=== PATIENT | female | born 1940 | race Caucasian/White ===

== ENCOUNTER 2017-03-31 15:47 | Observation (INO) ==
[2017-03-31] MEDS ORDERED: *HR* Dextrose 50 % in Water (Syg) 50 ML SYRINGE ONE ×3 (15:52→20:17)
--- NOTE | 2017-03-31 15:58 | Emergency Department Note ---
Disposition Clinical Impression: Hypoglycemia UTI (urinary tract infection) Qualifiers: Urinary tract infection type: acute cystitis Hematuria presence: without hematuria Qualified Code(s): N30.00 - Acute cystitis without hematuria Disposition: Admitted As Inpatient Condition: Fair Altered Mental Status HPI - General Chief Complaint: ED General Medical Stated Complaint: SLOW TO RESPOND Time Seen by Provider: 03/31/17 15:57 Source: EMS Mode of arrival: EMS Limitations: altered mental status Nursing Notes Reviewed: Yes Vital Signs Reviewed: Yes - History of Present Illness HPI Narrative: carolyn presents to the ED via EMS with report of decreased level of consciousness and hypoglycemia. Per EMS they were called after the patient collapsed while her was assisting her out of the car after returning home from an appointment for routine blood work. reported that the patient did not fall to the ground or strike her head but was eased to the ground by him. On EMS arrival fingerstick glucose was 38. Patient was not alert enough to take oral glucose and they were a basic crew and therefore could not provide IV or IM glucose. On arrival to the ED patient is very obtunded with minimal response to sternal rub although vital signs are hemodynamically stable. Repeat fingerstick is 15. Patient is a known insulin dependent diabetic. reported to EMS that she had recently been hospitalized at [facility]. - Related Data Home Medications Medication Instructions Recorded Confirmed Aspirin [Lo-Dose Aspirin EC] 81 mg PO DAILY 03/09/17 03/31/17 Cholecalciferol (Vitamin D3) 2,000 unit PO DAILY 03/09/17 03/31/17 [Vitamin D3] Insulin NPH/REG 70/30 [HumuLIN 65 unit SQ BIDWM 03/09/17 03/31/17 70/30 VIAL] Levothyroxine [Synthroid] 175 mcg PO 0630 03/09/17 03/31/17 Lisinopril [Zestril] 40 mg PO DAILY 03/09/17 03/31/17 Metoprolol [Lopressor] 100 mg PO BID 03/09/17 03/31/17 Oxybutynin Chloride [Ditropan Xl] 5 mg PO BID 03/09/17 03/31/17 Pioglitazone [Actos] 45 mg PO 0800 03/09/17 03/31/17 Pravastatin Sodium [Pravachol] 40 mg PO DAILY 03/09/17 03/31/17 metFORMIN [Glucophage] 500 mg PO BIDWM 03/09/17 03/31/17 Allergies Allergy/AdvReac Type Severity Reaction Status Date / Time No Known Allergies Allergy Verified 03/09/17 08:23 Limitations: ROS unobtainable due to patients medical condition Past Medical History - Past Medical History Medical history: Reports: non-contributory - Social History Smoking Status: Never smoker Smokeless Tobacco Status: No Alcohol use: Reports: none Drug use: Reports: none Physical Exam - General Limitations: altered mental status General appearance: obtunded - Head Head exam: atraumatic, normocephalic, normal inspection - Eye Eye exam: Present: normal appearance, PERRL, EOMI - ENT ENT exam: normal exam, normal oropharynx, mucous membranes moist - Neck Neck exam: Present: normal inspection, full ROM, trachea midline. Absent: lymphadenopathy - Chest Chest inspection: Present: normal inspection, symmetric chest wall rise - Respiratory Respiratory exam: Present: normal lung sounds bilaterally. Absent: respiratory distress - Cardiovascular Cardiovascular exam: Present: regular rate, normal rhythm, normal heart sounds - Abdominal Exam Abdominal exam: Present: soft, Non-Tender. Absent: tenderness, distention, guarding, rebound, rigidity - Extremities Exam Extremities exam: Present: normal inspection, full ROM, normal capillary refill. Absent: tenderness, pedal edema - Back Exam Back exam: Present: normal inspection, full ROM. Absent: tenderness - Expanded Neurological Exam Coma Scale Eye Opening: To Pain Coma Scale Motor Response: Withdraws to Pain Coma Scale Verbal Response: Incomprehensible Coma Scale Total: 8 - Skin Skin exam: Present: warm, dry, intact, normal color Course Course Narrative: Patient presents to the ED with decreased level of consciousness and fingerstick glucose of 15. IV access was immediately established and she received in a 50-50. Glucose improved to 44 and patient began responding to verbal stimuli. Patient states she remembers going to have repeat blood work done today after having blood work done yesterday and receiving a call that one of the labs could not be processed. She states she did take her medications today. She denies any recent illness. She reports some nausea but denies any vomiting or diarrhea. No fever or chills. Review of records shows the patient was seen here on March 09 was diagnosed with a UTI and her elevated troponin. She was transferred to [place]. She eventually had Escherichia coli growing in her blood and urine. states she was at [place] for 6 days and received IV antibiotics. She then went to [facility] for 1 week for a brief rehabilitation. She has been back at home for the past week. He states she had been doing well all week until she collapsed today. He states that he gave her her her usual 60 units of her 70/30 insulin at noon. She also took her metformin this morning. She only ate half a hand sandwich and a small glass of orange juice today around 10 AM. Patient's glucose declined again to 27 and she was given a second amp of D50. She will be given food as well. Mental status remains normal. We will check routine labs. Patient expressed concern that her may have mixed up his insulin with hers but he insists that he stores their insulin in separate places and there was not a mixup. - Reevaluation(s) Reevaluation #1: Urinalysis still shows evidence of UTI. She has a leukocytosis but is afebrile. Electrolytes are normal. Chest x-ray is normal. Patient ate a dinner tray but glucose began dropping again and she was given a third amp of D50. She was started on D5W to maintain her sugar levels. She was started on antibiotics for what appears to be a recurrent UTI. Spoke with patient and regarding admission for close monitoring given her recurrent hypoglycemia and recurrent UTI. There is no evidence of sepsis at this time. She did have a mildly elevated troponin but denies any chest pain or other cardiac complaints. EKG shows no ischemic changes. I spoke to the hospitalist television engineering teacher, Dr. Sanford, who agreed to accept the patient. We will continue to monitor sugars closely. Vital Signs Temperature 96.5 F L 03/31/17 16:01 Pulse Rate 68 03/31/17 16:01 Respiratory Rate 16 03/31/17 16:01 Blood Pressure 178/75 03/31/17 16:01 O2 Sat by Pulse Oximetry 100 03/31/17 16:01 Temperature 98.0 F 04/01/17 00:00 Pulse Rate 62 04/01/17 00:00 Respiratory Rate 16 04/01/17 00:00 Blood Pressure 93/52 04/01/17 00:00 O2 Sat by Pulse Oximetry 96 04/01/17 00:00 Oxygen Delivery Oxygen Delivery Room Air Altered Mental Status - Differential Diagnosis Likely: altered mental status, hypoglycemia, hyponatremia, sepsis - Medical Records Medical records reviewed: Yes I reviewed the patient's medical records. - Lab Data Lab results reviewed: Yes I reviewed the patient's lab results. Result diagrams: 03/31/17 16:30 03/31/17 22:42 Lab Results 03/31/17 03/31/17 03/31/17 Range/Units 16:30 16:30 16:30 WBC 13.0 H D (4.3-11.1) K/mcL RBC 4.52 (3.82-4.97) M/mcL Hgb 13.4 (11.5-15.4) g/dL Hct 41.7 (35.3-44.9) % MCV 92.3 (83.0-100.0) fL MCH 29.6 (28.0-33.3) pg MCHC 32.1 (31.6-35.5) g/dL RDW 13.3 (11.5-14.5) % Plt Count 161 (140-400) K/mcL MPV 11.3 (9.4-12.4) fL Immature Gran % 0.5 (0-4) % Seg Neutrophils % 67.7 % Lymphocytes % 22.1 % Monocytes % 9.0 % Eosinophils % 0.5 % Basophils % 0.2 % Neutrophils # 8.8 (1.6-8.9) K/mcL Lymphocytes # 2.9 (0.6-4.6) K/mcL Monocytes # 1.2 (0.0-1.3) K/mcL Eosinophils # 0.1 (0.0-0.6) K/mcL Basophils # 0.0 (0.0-0.2) K/mcL Sodium 135 L (136-145) mEq/L Potassium 4.4 (3.5-5.1) mEq/L Chloride 105 (98-107) mEq/L Carbon Dioxide 22 L (23-29) mEq/L BUN 24 H (8-23) mg/dL Creatinine 1.02 (0.60-1.20) mg/dL Est GFR ( Amer) > 60 (> 60) Est GFR (Non-Af Amer) 52 L (> 60) BUN/Creatinine Ratio 24 (6-26) Glucose 134 H (70-105) mg/dL Calculated Osmolality 286 (280-300) Lactic Acid 2.2 (0.5-2.2) mmol/L Calcium 9.2 (8.6-10.3) mg/dL Troponin I (< 0.04) ng/mL Urine Color (Yellow) Urine Clarity (Clear) Urine pH (5.0-8.0) pH Units Ur Specific Means (1.010-1.025) Urine Protein (Neg-Trace) mg/dL Urine Glucose (UA) (Normal) mg/dL Urine Ketones (Negative) mg/dL Urine Blood (Negative) Urine Nitrite (Negative) Urine Bilirubin (Negative) Urine Urobilinogen (Normal) mg/dL Ur Leukocyte Esterase (Negative) Urine Microscopic RBC (0-3) per hpf Urine Microscopic WBC (0-3) per hpf Ur Squamous Epith Cells (None-Few) per lpf Amorphous Sediment (Few) Urine Bacteria (None-Few) per hpf Urine Yeast (None Seen) per hpf Ur Culture Indicated? (NO) 03/31/17 03/31/17 Range/Units 16:30 16:55 WBC (4.3-11.1) K/mcL RBC (3.82-4.97) M/mcL Hgb (11.5-15.4) g/dL Hct (35.3-44.9) % MCV (83.0-100.0) fL MCH (28.0-33.3) pg MCHC (31.6-35.5) g/dL RDW (11.5-14.5) % Plt Count (140-400) K/mcL MPV (9.4-12.4) fL Immature Gran % (0-4) % Seg Neutrophils % % Lymphocytes % % Monocytes % % Eosinophils % % Basophils % % Neutrophils # (1.6-8.9) K/mcL Lymphocytes # (0.6-4.6) K/mcL Monocytes # (0.0-1.3) K/mcL Eosinophils # (0.0-0.6) K/mcL Basophils # (0.0-0.2) K/mcL Sodium (136-145) mEq/L Potassium (3.5-5.1) mEq/L Chloride (98-107) mEq/L Carbon Dioxide (23-29) mEq/L BUN (8-23) mg/dL Creatinine (0.60-1.20) mg/dL Est GFR ( Amer) (> 60) Est GFR (Non-Af Amer) (> 60) BUN/Creatinine Ratio (6-26) Glucose (70-105) mg/dL Calculated Osmolality (280-300) Lactic Acid (0.5-2.2) mmol/L Calcium (8.6-10.3) mg/dL Troponin I 0.05 H* (< 0.04) ng/mL Urine Color Yellow (Yellow) Urine Clarity Cloudy A (Clear) Urine pH 5.5 (5.0-8.0) pH Units Ur Specific Means 1.020 (1.010-1.025) Urine Protein 30 H (Neg-Trace) mg/dL Urine Glucose (UA) 500 H (Normal) mg/dL Urine Ketones Negative (Negative) mg/dL Urine Blood Small H (Negative) Urine Nitrite Negative (Negative) Urine Bilirubin Negative (Negative) Urine Urobilinogen Normal (Normal) mg/dL Ur Leukocyte Esterase Small H (Negative) Urine Microscopic RBC 0-3 (0-3) per hpf Urine Microscopic WBC 5-15 H (0-3) per hpf Ur Squamous Epith Cells Moderate H (None-Few) per lpf Amorphous Sediment Few (Few) Urine Bacteria Moderate H (None-Few) per hpf Urine Yeast Few H (None Seen) per hpf Ur Culture Indicated? YES A (NO) - Radiology Data Radiology results reviewed: Yes I reviewed the patient's radiology results. ITS Impressions Chest X-Ray 03/31/17 15:59 IMPRESSION: Stable portable study. D/ / Juana Lenz Cha, MD / Juana Lenz Cha, MD Interpreting Provider: Juana Lenz Cha, MD - EKG Data EKG attestation: Yes I reviewed and interpreted this EKG. EKG shows normal: sinus rhythm Rate: normal Rhythm: NSR [place]/QRS: normal Voltage: c/w LVH Interpretation: no acute changes TPA Checklist - LKW: 3-4.5 hrs Add. Warnings/Precautions Patient/family understanding: The patient/family members have been counseled and understood the risk, benefit , and alternatives of treatment. Critical Care Time Critical Care Time: Yes Total Critical Care Time: 30 Attestation: The high probability of a clinically significant, sudden or life threatening deterioration of the [cardiovascular, respiratory, ELECTROPLATER APPRENTICE] system(s) required my full and direct attention, intervention and personal management due to patient presented severely tented with severe recurrent hypoglycemia requiring aggressive glucose supplementation. The aggregate critical care time was [20] minutes. This time is in addition to time spent performing reported procedures but includes the following: [x] Data Review and interpretation [x] Patient assessment and monitoring of vital signs [x] Documentation [x] Medication orders and management
[2017-03-31] MEDS ORDERED: *HR* Dextrose 50 % in Water (Syg) 50 ML SYRINGE IVP ONE ×2 (16:06→18:21)
[2017-03-31] MEDS ORDERED: 0.9 % Sodium Chloride 500 ML IVC ONE (16:07)
[2017-03-31 16:48] LABS: Basophils % 0.2 %; Eosinophils # 0.1 K/mcL (0.0-0.6); Eosinophils % 0.5 %; Hematocrit 41.7 % (35.3-44.9); Hemoglobin 13.4 g/dL (11.5-15.4); Immature Granulocytes % 0.5 % (0-4); Lymphocytes # 2.9 K/mcL (0.6-4.6); Lymphocytes % 22.1 %; Mean Corpuscular HGB Conc 32.1 g/dL (31.6-35.5); Mean Corpuscular Hemoglobin 29.6 pg (28.0-33.3); Mean Platelet Volume 11.3 fL (9.4-12.4); Monocytes # 1.2 K/mcL (0.0-1.3); Neutrophils # 8.8 K/mcL (1.6-8.9); Platelet Count 161 K/mcL (140-400); Red Blood Count 4.52 M/mcL (3.82-4.97); Red Cell Distribution Width 13.3 % (11.5-14.5); Segmented Neutrophils % 67.7 %
[2017-03-31 16:51] LABS: Mean Corpuscular Volume 92.3 fL (83.0-100.0)
[2017-03-31 17:04] LABS: BUN/Creatinine Ratio 24 (6-26); Blood Urea Nitrogen 24 mg/dL (8-23); Calcium 9.2 mg/dL (8.6-10.3); Carbon Dioxide 22 mEq/L (23-29); Chloride 105 mEq/L (98-107); Glucose 134 mg/dL (70-105); Osmolality,Calculated 286 (280-300); Potassium 4.4 mEq/L (3.5-5.1); Sodium 135 mEq/L (136-145); eGFR For Non-African Americans 52 (> 60)
[2017-03-31 17:07] LABS: Bilirubin,Urine Negative (Negative); Blood,Urine Small (Negative); Clarity,Urine Cloudy (Clear); Color,Urine Yellow (Yellow); Glucose,Urine (UA) 500 mg/dL (Normal); Ketones,Urine Negative (Negative); Leukocyte Esterase,Urine Small (Negative); Nitrite,Urine Negative (Negative); PH,Urine 5.5 pH Units (5.0-8.0); Protein,Urine 30 mg/dL (Neg-Trace); Urobilinogen,Urine Normal (Normal)
[2017-03-31 17:17] LABS: Amorphous Sediment,Urine Few (Few); Bacteria,Urine Moderate per hpf (None-Few); RBC,Urine 0-3 per hpf (0-3); Squamous Epithelial Cell,Urine Moderate per lpf (None-Few); Yeast,Urine Few per hpf (None Seen)
[2017-03-31] MEDS ORDERED: cefTRIAXone 1,000 MG in Water for inj. (sterile) 20 ML 10 ML IVP ONE (17:51)
[2017-03-31] MEDS ORDERED: D5% in Water 1,000 ML IVC SCH (18:30)
[2017-03-31] MEDS ORDERED: Naloxone 0.4 MG/ML INJ IVP PRN ×2 (19:12→20:17)
[2017-03-31] MEDS ORDERED: D5% in Water 1,000 ML IVC PRN ×2 (19:13→20:17)
[2017-03-31] MEDS ORDERED: Dextrose Gel 15 GM/37.5 ML TUBE PO PRN ×4 (19:13→20:17)
[2017-03-31] MEDS ORDERED: *HR* Dextrose 50 % in Water (Syg) 50 ML SYRINGE IVP PRN ×2 (19:13→20:17)
[2017-03-31] MEDS ORDERED: Insulin LISPRO 300 UNITS/3 ML VIAL SQ SCH (20:00)
[2017-03-31] MEDS: D5% in Water 1,000 ML IVC SCH (20:54)
[2017-03-31] MEDS ORDERED: Metoprolol 100 MG TABLET PO SCH (21:00)
[2017-04-01] MEDS: Insulin LISPRO 300 UNITS/3 ML VIAL SQ SCH ×5 (01:34→20:28)
[2017-04-01] MEDS ORDERED: *HR* Pioglitazone 15 MG TABLET PO SCH (08:00)
[2017-04-01] MEDS: Aspirin Enteric Coated 81 MG Tablet PO SCH (09:00)
[2017-04-01] MEDS ORDERED: Lisinopril 20 MG TABLET PO SCH (09:00)
[2017-04-01] MEDS: Cholecalciferol (D-3) 1,000 UNIT TABLET PO SCH (09:00)
--- NOTE | 2017-04-01 12:13 | Internal Med History&Physical ---
Date of Encounter: 04/01/17 Time of Encounter: 11:35 Assessment and Plan (1) Hypoglycemia Current visit: Yes Status: Acute Blood sugar now normalized. Glucophage and Actos have been reordered. Accu- Cheks with SSI will be done. (2) Leukocytosis Current visit: Yes Status: Acute Minimal. We will recheck labs in a.m. Qualifiers: Leukocytosis type: unspecified Qualified Code(s): D72.829 - Elevated white blood cell count, unspecified (3) Lethargy Current visit: Yes Status: Acute Will reevaluate in a.m. Consider head CT if neurologic deficits persist (4) CKD (chronic kidney disease) stage 3, GFR 30-59 ml/min Current visit: Yes Status: Chronic Will hold lisinopril and give IV fluids to see if azotemia lessens. (5) Focal neurological deficit Current visit: Yes Status: Acute We will reassess in a.m. and possibly order CT scan of head. (6) UTI (urinary tract infection) Current visit: Yes Status: Acute She has been started empirically on Rocephin. We will add lactobacillus. Qualifiers: Urinary tract infection type: acute cystitis Hematuria presence: without hematuria Qualified Code(s): N30.00 - Acute cystitis without hematuria Internal Medicine - H&P: HPI Chief complaint: Hypoglycemia, lethargy Admitted From: Emergency Dept Plans for Post Hospital Care: Home History of present illness: Ms. Chaney is a 76 year old female was brought to the emergency room after she had decreased level of consciousness with hypoglycemia at home. She had loss of consciousness but did not have fall or injury. Her fingerstick was found to be 15 mg percent. She was evaluated in emergency room and found to have mild leukocytosis, azotemia, and possible UTI. She was admitted to [facility] from ongoing care needs She is lethargic and cannot give additional history of present illness. Past Med Surg Social Fam HX - Past Medical History Medical history: non-contributory Psychiatric history: no psych history - Past Surgical History Surgical History: appendectomy, hysterectomy, pacemaker - Social History Smoking Status: Never smoker Smokeless Tobacco Status: No Alcohol use: none Drug use: none - Family History Mother Living Status: Still Living Hx Family Cardiac Disorders: Yes (hypertension) Hx Family Cancer: Yes (bowel cancer mother, brother,) Hx Family Endocrine Disorder: Yes (diabetes) Internal Medicine - H&P: Meds Aspirin [Lo-Dose Aspirin EC] 81 mg PO DAILY 03/09/17 [History] Cholecalciferol (Vitamin D3) [Vitamin D3] 2,000 unit PO DAILY 03/09/17 [History] Insulin NPH/REG 70/30 [HumuLIN 70/30 VIAL] 65 unit SQ BIDWM 03/09/17 [History] Levothyroxine [Synthroid] 175 mcg PO 0630 03/09/17 [History] Lisinopril [Zestril] 40 mg PO DAILY 03/09/17 [History] Metoprolol [Lopressor] 100 mg PO BID 03/09/17 [History] Oxybutynin Chloride [Ditropan Xl] 5 mg PO BID 03/09/17 [History] Pioglitazone [Actos] 45 mg PO 0800 03/09/17 [History] Pravastatin Sodium [Pravachol] 40 mg PO DAILY 03/09/17 [History] metFORMIN [Glucophage] 500 mg PO BIDWM 03/09/17 [History] 3 Allergy/AdvReac Type Severity Reaction Status Date / Time No Known Allergies Allergy Verified 03/09/17 08:23 All Systems PM: A 10-system review of systems was performed and is negative for pertinent findings except as documented above in the HPI. Review of systems: Accuracy of review of systems is uncertain because of lethargy. Gen.: She states her weight has been stable at approximately 180 pounds Cardiovascular: She has history of hypertension. She claims she had TN in 2017. She is uncertain if she has heart failure. She denies DVT or pulmonary embolus Respiratory: She is a lifelong nonsmoker. She thinks she has THEODORE but is uncertain if she uses BiPAP GI: She denies disorders of her liver gallbladder or exocrine pancreas : She appears to have chronic kidney disease from review of archived labs. She has overactive bladder history. She denies other kidney or bladder disorders Neurologic: She denies large distribution strokes or seizures Endocrine: She has DM 2 but is uncertain of duration. She has hypothyroidism and hyperlipidemia Hematology/oncology: She denies blood disorders cancer or anemia Psychiatric: She denies anxiety depression or other mental health issues Musculoskeletal: She has DJD but denies gout or other bone joint or muscle disorders. - Constitutional Vitals: Temp Pulse Resp BP Pulse Ox 98.2 F 60 18 100/45 96 04/01/17 07:21 04/01/17 07:21 04/01/17 07:21 04/01/17 07:21 04/01/17 07:21 Exam: Gen.: She is a well-developed overweight female lying in bed who appears in no acute distress. She denies pain or dyspnea HEENT: Head is atraumatic and normocephalic. Eyes: EOMI. There is no scleral icterus. Mouth: Mucosa is moist. Neck: Supple and nontender. There is no thyromegaly or adenopathy noted. Heart: Regular without murmurs gallops or ectopics Lungs: No wheezes or crackles are heard. Abdomen: Soft and nontender. No masses or guarding are noted. Extremities: There is no cyanosis edema or clubbing noted. Dorsalis pedis and posterior tibial pulses are trace palpable bilaterally. Neurologic: Mental status: She is able to answer a few questions but is a fair to poor historian. She does not know her age or location. Cranial nerves: There is slight flattening of the right nasolabial fold at rest. Smile is symmetric however. Tongue protrudes midline. EOMI. Motor: She has mild right pronator drift. Reflexes: she has upgoing toes on Babinski testing bilaterally. Cerebellar: Finger to nose is intact bilaterally. Skin: Warm and dry Internal Med - H&P Results - Labs CBC & Chem 7: 03/31/17 16:30 03/31/17 22:42 Labs: BMP 03/31/17 22:42 Glucose 58 L Cardiac Enzymes 03/31/17 04/01/17 Range/Units 22:45 04:55 Troponin I 0.04 H* 0.06 H* (< 0.04) ng/mL - VTE Reasons for not Prescribing Prophylaxis: Treatment not Indicated - Low risk for VTE
[2017-04-01] MEDS ORDERED: cefTRIAXone 1,000 MG in Water for inj. (sterile) 20 ML 10 ML IVPB SCH (13:00)
[2017-04-01] MEDS: D5% in Water 1,000 ML IVC SCH (16:41)
[2017-04-01] MEDS: Lactobacillus 1 EACH CAP.SPRINK PO SCH (20:28)
[2017-04-02] MEDS: D5% in Water 1,000 ML IVC SCH ×4 (03:32→16:56)
[2017-04-02] MEDS: Insulin LISPRO 300 UNITS/3 ML VIAL SQ SCH ×6 (06:02→20:00)
[2017-04-02 06:40] LABS: Albumin 3.2 g/dL (3.5-5.7); Albumin/Globulin Ratio 1.1 (1.1-2.2); Bilirubin,Total 0.4 mg/dL (0.3-1.0); Globulin 2.9 g/dL (2.4-3.5); Potassium 4.2 mEq/L (3.5-5.1); Total Protein 6.1 g/dL (6.4-8.9)
[2017-04-02 06:47] LABS: Basophils % 0.4 %; Eosinophils # 0.2 K/mcL (0.0-0.6); Eosinophils % 1.9 %; Hematocrit 35.3 % (35.3-44.9); Hemoglobin 11.2 g/dL (11.5-15.4); Immature Granulocytes % 0.4 % (0-4); Lymphocytes % 38.7 %; Mean Corpuscular HGB Conc 31.7 g/dL (31.6-35.5); Mean Corpuscular Hemoglobin 29.6 pg (28.0-33.3); Mean Corpuscular Volume 93.1 fL (83.0-100.0); Mean Platelet Volume 11.6 fL (9.4-12.4); Monocytes % 13.3 %; Neutrophils # 3.5 K/mcL (1.6-8.9); Platelet Count 135 K/mcL (140-400); Red Blood Count 3.79 M/mcL (3.82-4.97); Red Cell Distribution Width 13.8 % (11.5-14.5); Segmented Neutrophils % 45.3 %
[2017-04-02] MEDS: Lactobacillus 1 EACH CAP.SPRINK PO SCH (08:52)
[2017-04-02] MEDS: Aspirin Enteric Coated 81 MG Tablet PO SCH (08:53)
[2017-04-02] MEDS: Cholecalciferol (D-3) 1,000 UNIT TABLET PO SCH (08:53)
--- NOTE | 2017-04-02 09:53 | Internal Med Progress Note ---
Date of Encounter: 04/02/17 Time of Encounter: 09:45 - Assessment and plan (1) Hypoglycemia Current Visit: Yes Status: Acute Assessment and plan: April 02. Hemoglobin A1c is pending. Blood sugars have improved but are still borderline low. We will hold Actos and metformin.. (2) Leukocytosis Current Visit: Yes Status: Acute Assessment and plan: April 02. Resolved. Will not workup further. Qualifiers: Leukocytosis type: unspecified Qualified Code(s): D72.829 - Elevated white blood cell count, unspecified (3) Lethargy Current Visit: Yes Status: Acute Assessment and plan: April 02. Resolved. Head CT was unremarkable. (4) CKD (chronic kidney disease) stage 3, GFR 30-59 ml/min Current Visit: Yes Status: Chronic Assessment and plan: April 02. She reports a diagnosis of chronic kidney disease. Will remain off lisinopril and continue IV fluids. Recheck labs in a.m. Anticipate discharge home tomorrow. (5) Focal neurological deficit Current Visit: Yes Status: Acute Assessment and plan: April 02. Resolved. Head CT was unremarkable. (6) UTI (urinary tract infection) Current Visit: Yes Status: Acute Assessment and plan: April 02. Urine culture showed no growth. We will discontinue Rocephin and lactobacillus. Qualifiers: Urinary tract infection type: acute cystitis Hematuria presence: without hematuria Qualified Code(s): N30.00 - Acute cystitis without hematuria (7) Urinary retention Current Visit: Yes Status: Acute Assessment and plan: April 02. We will discontinue Ditropan and remove Beltran in a.m. - Subjective Interval history: April 02. She has no new complaints and states she wishes to go home. She had approximately 850 mL urine on Beltran catheter insertion. - Constitutional Vitals: Temp Pulse Resp BP Pulse Ox 98.4 F 75 12 151/75 98 04/02/17 06:58 04/02/17 06:58 04/02/17 06:58 04/02/17 06:58 04/02/17 06:58 Exam: She is resting comfortably in bed and appears in no acute distress. She is much more awake and appropriate in conversation. I reviewed her medications and lab results. Internal Medicine: Result - Labs CBC & Chem 7: 04/02/17 05:30 04/02/17 05:30 Labs: Short CBC 04/02/17 Range/Units 05:30 WBC 7.8 (4.3-11.1) K/mcL Hgb 11.2 L D (11.5-15.4) g/dL Hct 35.3 (35.3-44.9) % Plt Count 135 L (140-400) K/mcL Neutrophils # 3.5 (1.6-8.9) K/mcL BMP 04/02/17 05:30 Sodium 136 Potassium 4.2 Chloride 104 Carbon Dioxide 27 BUN 25 H Creatinine 1.28 H Glucose 69 L Calcium 9.0 Liver Function 04/02/17 Range/Units 05:30 Total Bilirubin 0.4 (0.3-1.0) mg/dL AST 20 (13-39) Units/L ALT 11 (7-52) Units/L Alkaline Phosphatase 45 (34-104) Units/L Albumin 3.2 L (3.5-5.7) g/dL - Impressions Impressions Head CT 04/01/17 12:09 IMPRESSION: No acute intracranial abnormality. D/ / Juana Lenz Cha, MD / Juana Lenz Cha, MD Interpreting Provider: Juana Lenz Cha, MD - VTE Reasons for not Prescribing Prophylaxis: Treatment not Indicated - Low risk for VTE Consult Discharge Plan - Plan Referrals: Jr Solis MD [Primary Care Provider] - 1 week
[2017-04-02 12:26] LABS: Hemoglobin A1C 9.9 %
--- NOTE | 2017-04-02 16:39 | Electrocardiograph Report ---
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
[2017-04-02 18:51] VITALS: BP 141/60
[2017-04-03 04:06] LABS: Basophils % 0.4 %; Eosinophils # 0.1 K/mcL (0.0-0.6); Eosinophils % 2.1 %; Hematocrit 35.1 % (35.3-44.9); Hemoglobin 11.3 g/dL (11.5-15.4); Immature Granulocytes % 0.1 % (0-4); Lymphocytes # 2.6 K/mcL (0.6-4.6); Mean Corpuscular HGB Conc 32.2 g/dL (31.6-35.5); Mean Corpuscular Hemoglobin 29.9 pg (28.0-33.3); Mean Corpuscular Volume 92.9 fL (83.0-100.0); Mean Platelet Volume 11.2 fL (9.4-12.4); Monocytes % 14.8 %; Platelet Count 128 K/mcL (140-400); Red Blood Count 3.78 M/mcL (3.82-4.97); Red Cell Distribution Width 13.5 % (11.5-14.5); Segmented Neutrophils % 44.6 %
[2017-04-03 04:46] LABS: Calcium 9.1 mg/dL (8.6-10.3); Potassium 4.3 mEq/L (3.5-5.1)
[2017-04-03] MEDS: Insulin LISPRO 300 UNITS/3 ML VIAL SQ SCH ×3 (06:16→08:54)
[2017-04-03] MEDS: D5% in Water 1,000 ML IVC SCH (06:30)
[2017-04-03] MEDS: Aspirin Enteric Coated 81 MG Tablet PO SCH (08:53)
[2017-04-03] MEDS: Cholecalciferol (D-3) 1,000 UNIT TABLET PO SCH (08:53)
--- NOTE | 2017-04-03 10:23 | Discharge Summary ---
Date of Encounter: 04/03/17 Time of Encounter: 10:15 - Discharge Diagnosis (1) Hypoglycemia Priority: Primary Status: Resolved (2) Leukocytosis Priority: Secondary Status: Resolved Qualifiers: Leukocytosis type: unspecified Qualified Code(s): D72.829 - Elevated white blood cell count, unspecified (3) CKD (chronic kidney disease) stage 3, GFR 30-59 ml/min Priority: Secondary Status: Chronic (4) UTI (urinary tract infection) Priority: Secondary Status: Acute Qualifiers: Urinary tract infection type: acute cystitis Hematuria presence: without hematuria Qualified Code(s): N30.00 - Acute cystitis without hematuria (5) Urinary retention Priority: Secondary Status: Resolved - Discharge Medications Prescriptions: Sitagliptin Phosphate [Januvia] 50 mg PO DAILY #30 tab Home Medications: Aspirin [Lo-Dose Aspirin EC] 81 mg PO DAILY 03/09/17 [History] Cholecalciferol (Vitamin D3) [Vitamin D3] 2,000 unit PO DAILY 03/09/17 [History] Levothyroxine [Synthroid] 175 mcg PO 0630 03/09/17 [History] Lisinopril [Zestril] 40 mg PO DAILY 03/09/17 [History] Metoprolol [Lopressor] 100 mg PO BID 03/09/17 [History] Pioglitazone [Actos] 45 mg PO 0800 03/09/17 [History] Pravastatin Sodium [Pravachol] 40 mg PO DAILY 03/09/17 [History] metFORMIN [Glucophage] 500 mg PO BIDWM 03/09/17 [History] Sitagliptin Phosphate [Januvia] 50 mg PO DAILY #30 tab 04/03/17 [Rx] Allergies/Adverse Reactions: 3 Allergy/AdvReac Type Severity Reaction Status Date / Time No Known Allergies Allergy Verified 03/09/17 08:23 Procedures/tests Complete & Pending: Procedures Performed prior 72 hours Category Date Time Status CT head/brain wo con [CT] Routine Cat Scan 04/01/17 12:09 Completed Date of admission: 03/31/17 19:26 Primary care physician: Jr Solis MD Consults: 04/01/17 03:57 Consult to Chiropractic Practice Manager [CONS] Routine Reason for SW Consult: discharge planning 04/01/17 12:07 Consult to Occupational Therapy [CONS] Routine Comment: Evaluate, develop and implement POC Reason for Consult: Weakness, falls Consult to Physical Therapy [CONS] Routine Comment: Evaluate, develop and implement POC Reason for Consult: Weakness, falls - Patient Status Disposition: Home, Self-Care Condition: Fair Functional capacity at discharge: independent ambulation Overall status at discharge: patient is progressing back to baseline - Discharge Instructions Follow Up With: Jr Solis MD [Primary Care Provider] - 1 week - Diet and Activity Activity: resume usual activities as tolerated Diet: diabetic diet Hospital course: Ms. Chaney is a 76 year old female who was brought to the emergency room after she had decreased level of consciousness with hypoglycemia at home. She had loss of consciousness but did not have fall or injury. Her fingerstick was found to be 15 mg percent. She was evaluated in emergency room and found to have mild leukocytosis, azotemia, and possible UTI. She was [facility] to [facility] from ongoing care needs. Initial orders were written by the emergency room physician. I saw her on April 01 and performed the history and physical. She was given IV dextrose and insulin was held. Her sugars return to a satisfactory range. Hemoglobin A1c returned elevated at 9.9%. She reported she was not following a diabetic diet. I strongly encouraged her to follow 1200-calorie diabetic diet and check blood sugars before meals and at bedtime. She will review these with her PCP at the appointment within 1 week. She will remain off insulin but continue Glucophage and Actos. I also started her on Januvia 50 mg daily at discharge. Her mental status returned to baseline. Head CT showed no acute findings. She had urinary retention with 850 mL urine post void residual. Ditropan will be discontinued. She required Beltran catheter insertion briefly during hospitalization but this was discontinued prior to discharge. She will follow with her PCP Dr. Jr Solis within 1 week. - Time Spent with Patient Total time spent providing and/or coordinating discharge services: - Constitutional Vitals: Temp Pulse Resp BP Pulse Ox 98.2 F 62 18 141/60 98 04/02/17 18:50 04/02/17 18:50 04/02/17 18:50 04/02/17 18:50 04/02/17 19:45 - VTE Reasons for not Prescribing Prophylaxis: Treatment not Indicated - Low risk for VTE
--- NOTE | 2017-04-03 10:45 | Physician Discharge Referral ---
Home Health/Hosp Referral Info Transfer to: Home Health Attending Provider: Juvenal Provider in Charge Post Discharge: PCP (Jr Solis M.D.) - Diagnosis (1) Hypoglycemia Priority: Primary Status: Resolved (2) Leukocytosis Priority: Secondary Status: Resolved (3) CKD (chronic kidney disease) stage 3, GFR 30-59 ml/min Priority: Secondary Status: Chronic (4) UTI (urinary tract infection) Priority: Secondary Status: Resolved (5) Urinary retention Priority: Secondary Status: Resolved - Respiratory Orders Smoking Cessation: Smoking cessation has been advised. For more information, call the [place] Tobacco Quit Line at 5-637-GDPK-NOW. - Diet/Nutrition Diet/Nutrition Orders: No Concentrated Sweets - Activity Activity Orders: Ambulate - Services Needed Following services are medically necessary services: Nursing, Home Health Aide, Physical Therapy, Occupational Therapy - Transfer Medications Prescriptions: Sitagliptin Phosphate [Januvia] 50 mg PO DAILY #30 tab Home Medications: Aspirin [Lo-Dose Aspirin EC] 81 mg PO DAILY 03/09/17 [History] Cholecalciferol (Vitamin D3) [Vitamin D3] 2,000 unit PO DAILY 03/09/17 [History] Levothyroxine [Synthroid] 175 mcg PO 0630 03/09/17 [History] Lisinopril [Zestril] 40 mg PO DAILY 03/09/17 [History] Metoprolol [Lopressor] 100 mg PO BID 03/09/17 [History] Pioglitazone [Actos] 45 mg PO 0800 03/09/17 [History] Pravastatin Sodium [Pravachol] 40 mg PO DAILY 03/09/17 [History] metFORMIN [Glucophage] 500 mg PO BIDWM 03/09/17 [History] Sitagliptin Phosphate [Januvia] 50 mg PO DAILY #30 tab 04/03/17 [Rx] Allergies/Adverse Reactions: 3 Allergy/AdvReac Type Severity Reaction Status Date / Time No Known Allergies Allergy Verified 03/09/17 08:23 Certification: Further, I certify that my clinical findings support that this patient is homebound (i.e. absences from home require considerable and taxing effort and are for medical reasons or orthodox services or infrequently or short duration when for other reasons) because: Homebound Reason: Patient requires assistance of a person or device to safely leave home (Diabetic medication change with monitoring needed) Attestation: My signature below is to certify that this patient is under my care and that I, or nurse practitioner, or a physician's phlebotomist medical lab assistant working with me, has a face-to -face encounter with this patient.
== END 2017-04-03 11:46 | disposition home or self-care (01) ==
LOC: EMEROOPIK 15:47 → INPPIK 15:47
PROVIDERS: ADMIT Internal Medicine; ATTEND Internal Medicine